=== PATIENT | male | born 1995 | race Caucasian/White ===

== ENCOUNTER 2019-02-10 03:40 | Emergency (ER) | payer SELFPAY ==
[~2019-02-10] VITALS: Ht 180.3 cm; Wt 63.5 kg
[2019-02-10 07:21] VITALS: BP 130/76
== END 2019-02-10 08:15 | disposition home or self-care (01) ==
LOC: ER 03:40 → EDBD 03:40 → ER 08:12
DX: S62.101A Fracture of unspecified carpal bone, right wrist, initial encounter for closed fracture (principal); R51 Headache; V43.52XA Car driver injured in collision with other type car in traffic accident, initial encounter; Y93.89 Activity, other specified; Y99.8 Other external cause status; Y92.410 Unspecified street and highway as the place of occurrence of the external cause
CPT/HCPCS: 29125; 70450; 72125; 73030; 73100